=== PATIENT | female | born 1960 | race Caucasian/White ===

== ENCOUNTER 2017-10-03 13:08 | Day surgery (SDC) | payer OTHER ==
[~2017-10-03 13:08] MED LIST: Buffered Lidocaine 0.9% SYRIN* 5 ML/SYR SYRINGE INTRADERM ONE; DiMENhydriNATE IV* 50 MG/ML VIAL IV PUSH ONE; Famotidine IV* 10 MG/ML 2 ML (20 mg) IV ONE; Morphine INJ* 2 MG/ML 1 ML SYRINGE (TWO MG - NEW SYRINGE VERSION) IV PRN; Naloxone* 0.4 MG/ML 1 ML VIAL IV PRN; Ondansetron INJ* 2 MG/ML VIAL ONE; PROCHLORPERAZINE INJ 5 MG/ML 2 ML VIAL IV PRN; Scopolamine 1.5 mg* PATCH TRANSDERM PRN; fentaNYL* 50 MCG/ML 2 ML VIAL (100 MCG VIAL) IV PRN; oxyCODONE/Acetamin 5/325 MG* TAB PO PRN
[2017-10-03] MEDS ORDERED: fentaNYL* 50 MCG/ML 2 ML VIAL (100 MCG VIAL) ONE (13:19)
[2017-10-03] MEDS ORDERED: Midazolam* 1 MG/ML 5 ML VIAL (5 MG) ONE (13:19)
[2017-10-03] MEDS ORDERED: KETAMINE HCL* 50 MG/ML 10 ML VIAL ONE (13:19)
[2017-10-03] MEDS ORDERED: Famotidine IV* 10 MG/ML 2 ML (20 mg) ONE (13:33)
[2017-10-03] MEDS ORDERED: DiMENhydriNATE IV* 50 MG/ML VIAL ONE (13:33)
[2017-10-03] MEDS ORDERED: ceFAZolin 2 GM PREMIX (*) 2 GM/50 ML BAG IVPB ONE (13:33)
[2017-10-03] MEDS ORDERED: Ondansetron INJ* 2 MG/ML VIAL ONE (13:33)
[2017-10-03] MEDS ORDERED: Lidocain 1% EPI 1:100,000 * 30 ML MDV ONE (14:22)
[2017-10-03] MEDS ORDERED: Ropivacaine* 2 MG/ML 20 ML VIAL (0.2%) ONE (14:27)
[2017-10-03] MEDS ORDERED: Labetalol IV* 5 MG/ML 20 ML VIAL ONE (14:55)
[2017-10-03] MEDS ORDERED: Propofol* 10 MG/ML 20 ML BTL IV PUSH ONE (14:55)
[2017-10-03] MEDS ORDERED: Lidocaine 2% PF * 5 ML VIAL ONE (14:55)
[2017-10-03] MEDS ORDERED: Ketorolac INJ* 30 MG/ML 1 ML VIAL ONE (14:55)
[2017-10-03 15:40] VITALS: BP 128/62
--- NOTE | 2017-10-04 21:49 | OP ---
DATE OF OPERATION: 10/03/17 - [facility] DATE OF : 58 SURGEON: Eric Stewart MD COMMERCIAL RETOUCHER: VELASQUEZ [place] ANESTHESIOLOGIST: Dr. Jarquin. ANESTHESIA: Local MAC. PRE-OP DIAGNOSES: 1. Right trigger thumb. 2. Right carpal tunnel syndrome. POST-OP DIAGNOSES: 1. Right trigger thumb. 2. Right carpal tunnel syndrome. OPERATIVE PROCEDURE: 1. Right trigger finger release of the A1 augustin. 2. Right open carpal tunnel release. INDICATIONS: Leslie has a very severe trigger thumb and carpal tunnel syndrome. We talked about risks and benefits. She wanted to proceed with releases. FINDINGS: See above and below. ESTIMATED BLOOD LOSS: 2 mL. COMPLICATIONS: None. DESCRIPTION OF PROCEDURE: Leslie was seen in the preoperative holding area. The correct side, site, and procedure were identified. We came back to the operating room where the arm was prepped and draped in the usual fashion. A time-out was performed. I exsanguinated the arm with the Esmarch and the tourniquet was inflated to 250 mmHg. I then made a 1-cm transverse incision in the MP joint flexion crease. Full- thickness flaps were raised bluntly off the flexor tendon sheath. Ragnell retractors were placed to protect the digital nerves. I then incised the A1 augustin longitudinally in line with the tendon. Once I had completed the release, we irrigated out the wound and the skin was closed with 4-0 nylon suture. I then made a 2-cm incision longitudinally in the standard location for an open carpal tunnel release. Dissection was carried down through the subcutaneous tissue and palmar fascia. The transverse carpal ligament was released off the radial aspect of the hook of the hamate from distal to proximal. Proximally, I released the subcutaneous tissue and fascia and retracted this volarly and ulnarly with a Allen retractor. I then used the tenotomy scissors to complete the release of the transverse carpal ligament and distal antebrachial fascia to a level several centimeters proximal to the wrist flexion crease. Once I had confirmed the release and there was no compression on the nerve, we irrigated out the wound. Skin was closed with 4-0 nylon suture. The wounds were dressed with soft dressings. Tourniquet was deflated and she was taken to the recovery room in stable condition. [id number]/[facility] #: [id number] [facility] CENTERIleana
[2017-10-06] MEDS ORDERED: Scopolamine PATCH Remove* 1 NOTE MISC PATCH OFF ONE (05:29)
== END 2017-10-03 15:55 | disposition home or self-care (01) ==
LOC: OR 13:08
PROVIDERS: ATTEND Orthopaedic Surgery Hand Surgery
DX: M65.311 Trigger thumb, right thumb (principal); G56.01 Carpal tunnel syndrome, right upper limb; E11.9 Type 2 diabetes mellitus without complications; Z79.4 Long term (current) use of insulin; Z79.84 Long term (current) use of oral hypoglycemic drugs; I10 Essential (primary) hypertension; Z72.0 Tobacco use; E66.01 Morbid (severe) obesity due to excess calories; Z68.41 Body mass index [BMI] 40.0-44.9, adult; G47.33 Obstructive sleep apnea (adult) (pediatric); E78.2 Mixed hyperlipidemia
CPT/HCPCS: J0690; J1240; J1885; J2250; J2405; J2704; J2795; J3010

== ENCOUNTER 2018-10-11 13:35 | Emergency (ER) | payer OTHER ==
--- NOTE | 2018-10-11 15:49 | ED ---
Head Injury - HPI Summary HPI Summary: Patient is a 58 y/o F presenting to [facility] with complaints of a head injury today , 10/11/18, at 1150. She states that she was taking a box off of a shelf when it fell and struck her at the right side of her face. This occurred at her job at [employer]. She notes that the box was filled with plastic cups. Patient states that she caught herself and did not hit the ground. No LOC is reported. Patient is unsure of the weight of the box. She states that she is sore at the right side of her face. She notes some pain at the corner of her right eye but denies changes in vision. No nausea is reported. Patient notes that she applied a cold bottle of water to her injured area but denies taking any medications for pain. She is not on anticoagulation therapy. On triage, pain is denied, nothing is noted to aggravate/alleviate Sx. Home medications and allergies are reviewed. - History Of Current Complaint Chief Complaint: EDHeadInjury Stated Complaint: HEAD INJ WORK RELATED PER PT Time Seen by Provider: 10/11/18 15:24 Hx Obtained From: Patient Mechanism Of Injury: Direct Blow Onset/Duration: Started Hours Ago Severity Currently: None Pain Intensity: 0 Pain Scale Used: 0-10 Numeric Location of Head Injury: Other: - right side of face Location: Discrete At: - right side of face Character: Other: - soreness Aggravating Factor(s): Other: - nothing Alleviating Factor(s): Other: - nothing Associated Signs And Symptoms: Other: - positive - pain at right side of face, corner of right eye; negative - nausea, LOC, visual changes - Allergies/Home Medications Allergies/Adverse Reactions: Allergies Allergy/AdvReac Type Severity Reaction Status Date / Time bee venom protein (honey bee) Allergy Swelling Verified 10/03/17 13:46 PMH/Surg Hx/FS Hx/Imm Hx Endocrine/Hematology History: Reports: Hx Diabetes Cardiovascular History: Reports: Hx Angina, Hx Hypercholesterolemia, Hx Hypertension - ON MEDS Denies: Hx Coronary Artery Disease, Hx Myocardial Infarction, Hx Pacemaker/ ICD, Hx Valvular Heart Disease, Other Cardiovascular Problems/Disorders Respiratory History: Reports: Hx Asthma, Hx Sleep Apnea Denies: Hx Chronic Obstructive Pulmonary Disease (COPD) GI History: Reports: Hx Gastroesophageal Reflux Disease Denies: Other GI Disorders Musculoskeletal History: Reports: Hx Arthritis, Hx Back Problems Sensory History: Reports: Hx Contacts or Glasses - glasses Denies: Hx Hearing Aid Opthamlomology History: Reports: Hx Contacts or Glasses - glasses Neurological History: Reports: Hx Migraine, Other Neuro Impairments/Disorders - PAIN CLINIC PATIENT Psychiatric History: Denies: Hx Panic Disorder - Cancer History Hx Chemotherapy: No Hx Radiation Therapy: No - Surgical History Surgery Procedure, Year, and Place: C SECTION X2;. CHOLECYSTECTOMY 1998;. HEART CATH 2014 (NO STENTS PER PATIENT). SINUS - RHINOPLASTY-1978 Hx Anesthesia Reactions: No Infectious Disease History: No Infectious Disease History: Denies: Traveled Outside the [place] in Last 30 Days - Family History Known Family History: Positive: Hypertension - Social History Alcohol Use: Rare Alcohol Amount: holidays Substance Use Type: Reports: None Smoking Status (MU): Light Every Day Tobacco Smoker Type: Cigarettes Amount Used/How Often: 1/2 PPD Length of Time of Smoking/Using Tobacco: 36 Have You Smoked in the Last Year: Yes Review of Systems Eyes: Other - negative - visual changes; positive - pain at right corner of eye Negative: Nausea Neurological: Other - negative - LOC; positive - head injury, pain at right side of face All Other Systems Reviewed And Are Negative: Yes Physical Exam - Summary Physical Exam Summary: General: Well-developed, morbidly obese female. No acute distress. HEENT: Normocephalic, Atraumatic. Eyes: Conjuctiva normal, PERRL, EOMI, good visual dumont, visual acuity is normal Ears: TMs within normal limits. Nares: (-) discharge, (-) erythema. Oropharynx: Clear, mucous membranes moist, (-) exudates. Neck: Soft, FROM, (-) lymphadenopathy, (-) thyromegaly, (-) JVD. Cardiovascular: Normal sinus rhythm, (-) murmur. Lungs: Clear to auscultation bilaterally (-) wheezes, (-) rales, (-) rhonchi. Abdomen: Soft, non-tender, non-distended, (-) organomegaly, normal bowel sounds. Back: (-) CVA tenderness Extremities: No edema. Skin: Warm, dry, (-) rash. Neuro: Alert and oriented x3, no focal deficits. GCS 15. Psychiatric: Mood normal, affect normal. Triage Information Reviewed: Yes Vital Signs On Initial Exam: Initial Vitals Temp Pulse Resp BP Pulse Ox 98.0 F 95 18 158/85 96 10/11/18 13:43 10/11/18 13:43 10/11/18 13:43 10/11/18 13:43 10/11/18 13:43 Vital Signs Reviewed: Yes - [place] Coma Scale Best Eye Response: 4 - Spontaneous Best Motor Response: 6 - Obeys Commands Best Verbal Response: 5 - Oriented Coma Scale Total: 15 Diagnostics - Vital Signs Vital Signs Temp Pulse Resp BP Pulse Ox 10/11/18 13:43 98.0 F 95 18 158/85 96 - Laboratory Lab Statement: Any lab studies that have been ordered have been reviewed, and results considered in the medical decision making process. Head Injury Course/Dx Course Of Treatment: Patient is a 58 y/o F presenting to [facility] with complaints of a head injury today, 10/11/18, at 1150. She states that she is sore at the right side of her face. She notes some pain at the corner of her right eye but denies changes in vision. No LOC reported. On physical exam, patient is atraumatic, PERRL, EOMI, normal visual dumont, normal visual acuity. Patient was given Tylenol 650 mg PO. Ice was applied to area of injury. She was discharged to home and will follow up with PCP within three days. - Diagnoses Provider Diagnoses: Minor head injury Discharge ED - Sign-Out/Discharge Documenting (check all that apply): Patient Departure - discharge Patient Received Moderate/Deep Sedation with Procedure: No - Discharge Plan Condition: Stable Disposition: HOME Patient Education Materials: Head Injury (ED) Referrals: Meena Hernandez MD [Primary Care Provider] - 3 Days Additional Instructions: Please follow up with your primary care physician within three days. Please return to ED for any new or worsening symptoms. - Billing Disposition and Condition Condition: STABLE Disposition: Home - Attestation Statements Document Initiated by Elva: Yes Documenting Scribe: JENSEN CAGE Provider For Whom Elva is Documenting (Include Credential): ROXIE DELATORRE MD Scribe Attestation: JENSEN Wellington scribed for ROXIE DELATORRE MD on 10/11/18 at 1809. Scribe Documentation Reviewed: Yes Provider Attestation: The documentation as recorded by the JENSEN marc accurately reflects the service I personally performed and the decisions made by me, ROXIE DELATORRE MD Status of Scribterry Document: Viewed
[2018-10-11] MEDS ORDERED: Acetaminophen TAB* 325 MG PO ONE (15:50)
[2018-10-11 16:02] VITALS: BP 143/67
== END 2018-10-11 16:00 | disposition home or self-care (01) ==
LOC: ED 13:35
DX: S09.90XA Unspecified injury of head, initial encounter (principal); W20.8XXA Other cause of strike by thrown, projected or falling object, initial encounter; Y92.9 Unspecified place or not applicable; F17.210 Nicotine dependence, cigarettes, uncomplicated; I10 Essential (primary) hypertension; E78.00 Pure hypercholesterolemia, unspecified; K21.9 Gastro-esophageal reflux disease without esophagitis; E11.9 Type 2 diabetes mellitus without complications
CPT/HCPCS: 99281; A9270-GY